=== PATIENT | male | born 1940 | race Caucasian/White ===

== ENCOUNTER 2016-08-20 19:22 | Emergency (ER) | payer OTHER ==
[2016-08-20 19:30] VITALS: BP 149/80; BMI 23.0
--- NOTE | 2016-08-20 20:16 | DR.GENAD ---
HPI - PCP Primary Care Physician: JON CAMPBELL - Complaint/Symptoms Chief Complaint Doctors Comments: History as stated Chief Complaint:: STEPPING OVER A PIPE IN [employer] AND TRIPPED. INCIDENT OCCURRED 3 HOURS AGO. PATIENT HIT HIS CHIN ON ANOTHER PIPE AND HAS A LACERATION ON THE RIGHT CHIN AREA, APPROXIMATELY ONE INCH IN LENGTH. PATIENT HAS COVERED WITH A STERI-STRIP AT HOME; HOWEVER, LACERATION CONTINUES TO BLEED. NO LOC. - Source History Provided: Patient - Mode of Arrival Mode of Arrival: Ambulatory - Timing Onset of Chief Complaint: 08/20/16 PMH - PMH Past Medical History: Yes Past Medical History: Arthritis, Coronary Artery Disease, [place] Past Surgical History: Yes Surgical History: Angioplasty/Stents, CABG/Valve Surgery, Ortho Surgery - Family History History of Family Medical Conditions: Yes Family Medical History: Diabetes Mellitus - Social History Type of Tobacco Use: None Alcohol Use: None Do you use any recreational Drugs:: No Lives With: Spouse Lives Where: Home - infectious screening In the last 2 months have you had wt loss of >10#?: NO Have you had fever, night sweats or hemotysis?: No Have you traveled outside the country in the last 6 months?: No Isolation: Standard ROS - Review of Systems Eyes: No Symptoms Reported ENTM: No Symptoms Reported Respiratoy: No Symptoms Reported Cardiovascular: No Symptoms Reported Gastrointestinal/Abdominal: No Symptoms Reported Genitourinary: No Symptoms Reported Neurological: No Symptoms Reported Musculoskeletal: No Symptoms Reported Integumentary: See HPI, Lesions (irregular shaped laceration 1cm) Hematologic/Lymphatic: No Symptoms Reported Endocrine: No Symptoms Reported Psychiatric: No Symptoms Reported All Other Systems: Reviewed and Negative PE - Vital Signs Vitals: Temperature 98 F Pulse Rate 20 Respiratory Rate 79 Blood Pressure [Standing] 115/62 Blood Pressure [Sitting] 120/68 Blood Pressure [Lying] 123/69 Blood Pressure 149/80 O2 Sat by Pulse Oximetry 96 - General General Appearance: Alert - Head Head Exam: Normal Inspection, Atraumatic - Eyes Eye exam: Normal Appearance, PERRL, EOMI - ENT ENT Exam: Normal Exam External Ear Exam: Normal External Inspection TM/Canal Exam: Bilateral Normal Nose Exam: Normal Nose Exam Mouth Exam: Normal Inspection Throat Exam: Normal Inspection - Neck Neck Exam: Normal Inspection - Chest Chest Inspection: Normal Inspection - Respiratory Respiratory Exam: Normal Lung Sounds Bilat Respiratory Exam: Bilateral Clear to Auscultation - Cardiovascular Cardiovascular Exam: Regular Rate - Abdominal Exam Abdominal Exam: Normal Inspection Abdominal Tenderness: negative: RUQ, RLQ, LUQ, LLQ, Epigastrium, Suprapubic, Diffuse, Mild, Moderate, Severe, Other - Extremities Extremities Exam: Normal Inspection, Full ROM - Back Back Exam: Normal Inspection, Full ROM - Neurologic Neurological Exam: Alert, Oriented X3, CN II-XII Intact - Psychiatric Psychiatric Exam: Normal Affect, Normal Mood - Skin Skin Exam: Warm, Other (1cm jaggered laceration to anterior lateral chin) Course - Reevaluation 1st: Improved Procedures - Laceration/Wound Repair Right Anterior Lateral Face Wound Length (cm): 1 Wound's Depth, Shape: Superficial, Irregular Wound Explored: clean Betadine Prep?: Yes Wound Repaired With: Steri-strips, Dermabond - Diagnosis Discharge Problem: Chin laceration Qualifiers: Encounter type: initial encounter Qualified Code(s): S01.81XA - Laceration without foreign body of other part of head, initial encounter - Discharge Plan Condition: Stable - Follow ups/Referrals Follow ups/Referrals: NFD,None [Primary Care Provider] - 3 days - Instructions
== END 2016-08-20 20:24 | disposition home or self-care (01) ==
LOC: ER 19:33
PROC: 0WQ20ZZ Repair Face, Open Approach (ICD-10-PCS; principal; 2016-08-20)
DX: S01.81XA Laceration without foreign body of other part of head, initial encounter (principal); X58.XXXA Exposure to other specified factors, initial encounter; Y92.9 Unspecified place or not applicable
CPT/HCPCS: 12011; 99282